=== PATIENT | female | born 1985 | race Caucasian/White ===

== ENCOUNTER 2016-10-08 11:46 | Emergency (ER) | payer MEDICAID, OTHER ==
[~2016-10-08] VITALS: Ht 167.6 cm; Wt 66.6 kg
[~2016-10-08 11:46] MED LIST: DOCU100C8 PO; HYDR-3240 PO; IBUP-1222 PO; METO10TA2 PO; ONDA4TAB7 PO; PROM25SU35 PR; PROM25TA10 PO; UNKNOWN ABX
[2016-10-08] MEDS ORDERED: SODIUM CHLORIDE FLUSH 10ML SYR IVF ONE (12:30)
[2016-10-08] MEDS ORDERED: METOCLOPRAMIDE 5 MG/ML, 2ML IVPush ONE (12:30)
[2016-10-08] MEDS ORDERED: SODIUM CHLORIDE 0.9% 1,000ML IVBOLUS ONE (12:30)
[2016-10-08] MEDS ORDERED: METOCLOPRAMIDE 5 MG/ML, 2ML ONE (12:34)
[2016-10-08 12:43] LABS: BLOOD UREA NITROGEN 7 mg/dL (7-18)
[2016-10-08] MEDS ORDERED: POTASSIUM CHLORIDE 20 MEQ TAB.ER.PRT PO ONE (13:00)
[2016-10-08] MEDS ORDERED: POTASSIUM CHLORIDE 20 MEQ TAB.ER.PRT ONE (13:06)
[2016-10-08 14:09] VITALS: BP 102/56
== END 2016-10-08 14:11 | disposition home or self-care (01) ==
LOC: ED 13:03
DX: O21.0 Mild hyperemesis gravidarum (principal); E87.6 Hypokalemia; E86.0 Dehydration; Z3A.21 21 weeks gestation of pregnancy
CPT/HCPCS: 36415; 80048; 82040; 96361; 96374; 99284; J2765; J7030